=== PATIENT | female | born 1990 | race Caucasian/White ===

== ENCOUNTER 2018-06-13 00:35 | Emergency (ER) | payer MEDICAID ==
[~2018-06-13] VITALS: Ht 157.5 cm; Wt 56.7 kg
[2018-06-13 01:02] VITALS: BP 144/97
== END 2018-06-13 02:05 | disposition home or self-care (01) ==
LOC: ER 00:40
DX: S00.83XA Contusion of other part of head, initial encounter (principal); F32.9 Major depressive disorder, single episode, unspecified; F41.9 Anxiety disorder, unspecified; Z98.890 Other specified postprocedural states; V49.49XA Driver injured in collision with other motor vehicles in traffic accident, initial encounter; Y93.89 Activity, other specified; Y92.413 State road as the place of occurrence of the external cause; Y99.8 Other external cause status
CPT/HCPCS: 70450-TC; 84703-TC

== ENCOUNTER 2022-05-18 00:07 | Emergency (ER) | payer MEDICAID, OTHER ==
[~2022-05-18] VITALS: Ht 162.6 cm; Wt 63.5 kg
[2022-05-18 01:21] VITALS: BP 147/91
[2022-05-18] MEDS ORDERED: ONDA4TAB11 PO (01:31)
[2022-05-18] MEDS ORDERED: KETO10TA2 PO (01:31)
== END 2022-05-18 02:02 | disposition home or self-care (01) ==
LOC: ER 00:09
DX: R11.2 Nausea with vomiting, unspecified (principal); R19.7 Diarrhea, unspecified; F31.9 Bipolar disorder, unspecified; F41.9 Anxiety disorder, unspecified